=== PATIENT | female | born 1990 ===

== ENCOUNTER 2016-11-22 22:19 | Emergency (ER) | payer OTHER ==
[2016-11-22 22:21] VITALS: BMI 31.8
[2016-11-22 22:25] VITALS: TEMP 98.3
[2016-11-22] MEDS ORDERED: Sodium Chloride 0.9% 1,000 ML IV STA (22:50)
[2016-11-22 23:26] LABS: ADD MANUAL DIFF? NO
[2016-11-22 23:31] LABS: BASO # 0.02 K/mm3 (0.0-2.0); BASO % 0.2 % (0.0-3.0); EOS # 0.1 (0.0-0.7); GRAN # 5.96 (1.4-6.5); GRAN % 53.7 % (50.0-68.0); HEMATOCRIT 40.7 % (36.0-48.0); LYMPH # 4.2 (1.2-3.4); LYMPH % 37.8 % (22.0-35.0); MEAN CELL VOLUME 92.7 fL (80.0-105.0); MEAN CORPUSCULAR HEMOGLOBIN 31.2 pg (25.0-35.0); MEAN CORPUSCULAR HGB CONC 33.7 g/dl (31.0-37.0); MONO # 0.8 (0.1-0.6); MONO % 7.3 % (1.0-6.0); PLATELET COUNT 233 10^3/uL (120.0-450.0); RED CELL DISTRIBUTION WIDTH 12.9 % (11.5-14.5); WHITE BLOOD COUNT 11.1 10^3/ul (4.5-11.0)
[2016-11-22 23:43] LABS: ALB/GLOB RATIO 1.1 (1.1-1.8); ALKALINE PHOSPHATASE 123 U/L (38-133); ALT/SGPT 26 U/L (7-56); AST/SGOT 24 U/L (15-39); BILIRUBIN,TOTAL 0.4 mg/dL (0.2-1.3); BLOOD UREA NITROGEN 20 mg/dL (7-21); CARBON DIOXIDE 28 mmol/L (21-33); CHLORIDE 101 mmol/L (98-107); GFR AFRICAN-AMERICAN > 60; GLUCOSE,RANDOM 88 mg/dL (70-110); POTASSIUM 3.5 mmol/L (3.6-5.0); SODIUM 138 mmol/L (132-148); TOTAL PROTEIN 7.8 g/dL (5.8-8.3)
[2016-11-23 00:49] LABS: PH,URINE 6.5 (4.7-8.0); URINE BILIRUBIN NEGATIVE (NEGATIVE); URINE BLOOD TRACE-LYSED (NEGATIVE); URINE GLUCOSE (UA) NEGATIVE (NEGATIVE); URINE KETONE NEGATIVE (NEGATIVE); URINE LEUKOCYTE ESTERASE SMALL Leu/uL (NEGATIVE); URINE PROTEIN TRACE mg/dL (<30 mg/dL); URINE UROBILINOGEN 0.2 E.U./dL (<1 E.U./dL)
[2016-11-23 00:52] LABS: URINE APPEARANCE CLEAR (CLEAR); URINE COLOR YELLOW (YELLOW)
[2016-11-23 01:03] LABS: URINE BACTERIA MOD (NEG)
[2016-11-23 02:10] VITALS: BP 110/58; PULSE 85; RESP 16; O2SAT 97
--- NOTE | 2016-11-23 02:16 | ED PDOC ---
Arrival/HPI - General Chief Complaint: Headache Time Seen by Provider: 11/22/16 22:48 Historian: Patient - History of Present Illness Narrative History of Present Illness (Text): 11/23/16 00:00 A 26 year old female, whose past medical history includes migraines, presents to the emergency department complaining of typical migraine pain. Patient also notes mild left flank pain. Patient denies fever, neck stiffness, nausea, vomiting, abdominal pain or any other complaints at this time. Symptom Onset: Sudden Symptom Course: Unchanged Activities at Onset: Rest Context: Home Past Medical History - Provider Review Nursing Documentation Reviewed: Yes - Past History Past History: Non-Contributing - Infectious Disease Hx of Infectious Diseases: None - Tetanus Immunization Tetanus Immunization: Unknown - Cardiac Hx Cardiac Disorders: Yes Hx Hypertension: Yes (Pre eclampsia) - Pulmonary Hx Respiratory Disorders: Yes Hx Asthma: Yes - Neurological Hx Migraine: Yes - HEENT Hx HEENT Disorder: No - Renal Hx Renal Disorder: No - Endocrine/Metabolic Hx Hyperthyroidism: Yes - Hematological/Oncological Hx Blood Disorders: No - Integumentary Hx Dermatological Disorder: No - Musculoskeletal/Rheumatological Hx Musculoskeletal Disorders: No - Gastrointestinal Hx Gastrointestinal Disorders: No - Genitourinary/Gynecological Hx Genitourinary Disorders: No - Psychiatric Hx Psychophysiologic Disorder: No Hx Anxiety: No Hx Bipolar Disorder: No Hx Depression: No Hx Post Traumatic Stress Disorder: No Hx Schizophrenia: No Hx Substance Use: No - Past Surgical History Past Surgical History: No Previous - Surgical History Hx Cholecystectomy: Yes Hx Orthopedic Surgery: Yes (L ELBOW 12 yrs old) - Anesthesia Hx Anesthesia: Yes Hx Anesthesia Reactions: No Hx Malignant Hyperthermia: No - Suicidal Assessment Feels Threatened In Home Enviroment: No Family/Social History - Physician Review Nursing Documentation Reviewed: Yes Family/Social History: No Known Family HX Smoking Status: Never Smoked Hx Alcohol Use: No Hx Substance Use: No Hx Substance Use Treatment: No Allergies/Home Meds Allergies/Adverse Reactions: Allergies acetaminophen [From Percocet] Allergy (Verified 03/10/16 06:02) ANAPHYLAXIS Iodinated Contrast Media - Oral and [Iodinated Contrast Media - IV Dye] Allergy (Verified 03/10/16 06:46) RASH oxycodone HCl [From Percocet] Allergy (Verified 03/10/16 06:02) ANAPHYLAXIS Review of Systems - Physician Review All systems were reviewed & negative as marked: Yes - Review of Systems Constitutional: absent: Fevers Gastrointestinal: absent: Abdominal Pain, Nausea, Vomiting Musculoskeletal: Other (left flank pain). absent: Neck Pain Neurological: Headache Physical Exam Vital Signs Reviewed: Yes Vital Signs Temp Pulse Resp BP Pulse Ox 11/23/16 02:08 85 16 110/58 L 97 11/22/16 22:24 98.3 F 96 H 18 102/65 98 Temperature: Afebrile Blood Pressure: Normal Pulse: Regular Respiratory Rate: Normal Appearance: Positive for: Well-Appearing, Non-Toxic, Comfortable Pain Distress: None Mental Status: Positive for: Alert and Oriented X 3 - Systems Exam Head: Present: Atraumatic, Normocephalic Pupils: Present: PERRL Extroacular Muscles: Present: EOMI Conjunctiva: Present: Normal Mouth: Present: Moist Mucous Membranes Neck: Present: Normal Range of Motion Respiratory/Chest: Present: Clear to Auscultation, Good Air Exchange. No: Respiratory Distress, Accessory Muscle Use Cardiovascular: Present: Regular Rate and Rhythm, Normal S1, S2. No: Murmurs Abdomen: Present: Normal Bowel Sounds. No: Tenderness, Distention, Peritoneal Signs Back: Present: Normal Inspection. No: CVA Tenderness Upper Extremity: Present: Normal Inspection. No: Cyanosis, Edema Lower Extremity: Present: Normal Inspection. No: Edema Neurological: Present: GCS=15, CN II-XII Intact, Speech Normal Skin: Present: Warm, Dry, Normal Color. No: Rashes Psychiatric: Present: Alert, Oriented x 3, Normal Insight, Normal Concentration Medical Decision Making ED Course and Treatment: 11/23/16 00:00 Impression: A 26 year old female migraine and mild left flank pain. Differential Diagnosis included but are not limited to: Plan: -- Labs -- Urinalysis -- IV fluids, Toradol, Reglan -- Reassess and disposition Prior Visits: Notes and results from previous visits were reviewed. Patient last reported to the emergency department on 08/03/16 for evaluation of a headache. Patient was discharged. Progress Notes: 11/23/16 00:15 On re-evaluation, patient feels better and notes headache is gone. I have discussed the results and plan with the patient, who expresses understanding. Patient in agreement with plan to be discharged home. Patient is stable for discharge. Patient will be given antibiotics for urinary tract infection. Patient was instructed to follow up with physician or return if symptoms worsen or new concerning symptoms arise. - Lab Interpretations Lab Results: 11/22/16 23:15 11/22/16 23:15 Lab Results 11/23/16 00:35: Urine Color Yellow, Urine Appearance Clear, Urine pH 6.5, Ur Specific [place] 1.020, Urine Protein Trace H, Urine Glucose (UA) Negative, Urine Ketones Negative, Urine Blood Trace-lysed H, Urine Nitrate Negative, Urine Bilirubin Negative, Urine Urobilinogen 0.2, Ur Leukocyte Esterase Small H , Urine RBC 2 - 5, Urine WBC 5 - 10, Ur Epithelial Cells 3 - 4, Urine Bacteria Mod 11/22/16 23:15: Urine HCG, Qual Negative 11/22/16 23:15: WBC 11.1 H, RBC 4.39, Hgb 13.7, Hct 40.7, MCV 92.7, MCH 31.2, MCHC 33.7, RDW 12.9, Plt Count 233, MPV 11.0, Gran % 53.7, Lymph % (Auto) 37.8 H , [place] % (Auto) 7.3 H, Eos % (Auto) 1.0 L, Baso % (Auto) 0.2, Gran # 5.96, Lymph # 4.2 H, [place] # 0.8 H, Eos # 0.1, Baso # 0.02 11/22/16 23:15: Sodium 138, Potassium 3.5 L, Chloride 101, Carbon Dioxide 28, Anion Gap 13, BUN 20, Creatinine 0.7, Est GFR ( Amer) > 60, Est GFR (Non- Af Amer) > 60, Random Glucose 88, Calcium 9.0, Total Bilirubin 0.4, AST 24, ALT 26, Alkaline Phosphatase 123, Total Protein 7.8, Albumin 4.1, Globulin 3.7, Albumin/Globulin Ratio 1.1 I have reviewed the lab results: Yes - Medication Orders Current Medication Orders: Discontinued Medications Sodium Chloride (Sodium Chloride 0.9%) 1,000 mls @ 999 mls/hr IV .Q1H1M STA Stop: 11/22/16 23:50 Last Admin: 11/22/16 23:20 Dose: 999 mls/hr Ketorolac Tromethamine (Toradol) 30 mg IVP STAT STA Stop: 11/22/16 22:51 Last Admin: 11/22/16 23:20 Dose: 30 mg Re-Assess: CONCHA Pain Assessment Document 11/23/16 00:20 RD (Rec: 11/23/16 00:49 [facility] Pain Reassessment Is this a pain reassessment? Yes Sleep Is patient sleeping during reassessment? No Presence of Pain Presence of Pain No Metoclopramide HCl (Reglan) 10 mg IVP STAT STA Stop: 11/22/16 22:51 Last Admin: 11/22/16 23:20 Dose: 10 mg - Scribe Statement The provider has reviewed the documentation as recorded by the [place] Lan Provider Scribe Attestation: All medical record entries made by the Makedaibashwin were at my direction and personally dictated by me. I have reviewed the chart and agree that the record accurately reflects my personal performance of the history, physical exam, medical decision making, and the department course for this patient. I have also personally directed, reviewed, and agree with the discharge instructions and disposition. Disposition/Present on Arrival - Present on Arrival Any Indicators Present on Arrival: No History of DVT/PE: No History of Uncontrolled Diabetes: No Urinary Catheter: No History of Decub. Ulcer: No History Surgical Site Infection Following: None - Disposition Have Diagnosis and Disposition been Completed?: Yes Diagnosis: Migraine, UTI (urinary tract infection) Disposition: HOME/ ROUTINE Disposition Time: 00:15 Condition: IMPROVED Discharge Instructions (ExitCare): Urinary Tract Infection in Women (ED), Migraine Headache (ED) Additional Instructions: Thank you for letting us take care of you today. Your provider was Dr. Patel. You were treated for a migraine and a UTI. The emergency medical care you received today was directed at your acute symptoms. If you were prescribed any medication, please fill it and take as directed. It may take several days for your symptoms to resolve. Return to the Emergency Department if your symptoms worsen, do not improve, or if you have any other problems. Please contact your doctor or call one of the physicians/clinics you have been referred to that are listed on the Patient Visit Information form that is included in your discharge packet. Bring any paperwork you were given at discharge with you along with any medications you are taking to your follow up visit. Our treatment cannot replace ongoing medical care by a primary care provider (PCP) outside of the emergency department. Thank you for allowing the [facility] team to be part of your care today. You had a urine culture: It will take several days for the results, if any change in treatment is needed we will contact you. Follow up with your doctor in 3-4 days to be re-evaluated. Prescriptions: Ibuprofen [Motrin] 600 mg PO Q6 PRN #20 tab PRN Reason: Pain, Moderate (4-7) Nitrofurantoin Macrocrystals [Macrobid] 100 mg PO BID #10 cap Referrals: [facility] Roberth Req, [Non-Staff] - Follow up with primary
== END 2016-11-23 02:10 | disposition home or self-care (01) ==
LOC: ED 22:19
DX: G43.909 Migraine, unspecified, not intractable, without status migrainosus (principal); N39.0 Urinary tract infection, site not specified; I10 Essential (primary) hypertension
CPT/HCPCS: 80053; 81001; 84703; 85025; 87086; 96361; 96374; 96375; 99285; J1885; J2765; J7040

== ENCOUNTER 2016-11-24 14:51 | Observation (INO) | payer OTHER ==
[2016-11-24 14:51] VITALS: BMI 31.8
--- NOTE | 2016-11-24 15:12 | ED PDOC ---
Arrival/HPI <Helena Mistry - Last Filed: 11/24/16 19:26> - General Historian: Patient - History of Present Illness Time/Duration: Prior to Arrival Symptom Onset: Sudden Symptom Course: Unchanged <Solis Friedman - Last Filed: 11/24/16 19:40> - General Chief Complaint: Shortness Of Breath Time Seen by Provider: 11/24/16 14:53 - History of Present Illness Narrative History of Present Illness (Text): 26 F with past medical history includes vertigo, migraine (was just in ED for migraine 2 days ago) , hypothyroidism, asthma, and hypertension presents with shortness of breath and L sided facial numbness. Pt states that she was coming home from [place] when she felt short of breath and felt numbness in the L side of her face. She states that her sob and numbness has both now resolved. She denies any emerson, dizziness, f/c, coughing, cp, palpitations, abd pain, n/v/d. (Solis Friedman) Past Medical History - Provider Review Nursing Documentation Reviewed: Yes - Past History Past History: Non-Contributing - Infectious Disease Hx of Infectious Diseases: None - Tetanus Immunization Tetanus Immunization: Unknown - Cardiac Hx Cardiac Disorders: Yes Hx Hypertension: Yes (Pre eclampsia) - Pulmonary Hx Respiratory Disorders: Yes Hx Asthma: Yes - Neurological Hx Migraine: Yes - HEENT Hx HEENT Disorder: No - Renal Hx Renal Disorder: No - Endocrine/Metabolic Hx Hyperthyroidism: Yes - Hematological/Oncological Hx Blood Disorders: No - Integumentary Hx Dermatological Disorder: No - Musculoskeletal/Rheumatological Hx Musculoskeletal Disorders: No - Gastrointestinal Hx Gastrointestinal Disorders: No - Genitourinary/Gynecological Hx Genitourinary Disorders: No - Psychiatric Hx Psychophysiologic Disorder: No Hx Anxiety: No Hx Bipolar Disorder: No Hx Depression: No Hx Post Traumatic Stress Disorder: No Hx Schizophrenia: No Hx Substance Use: No - Past Surgical History Past Surgical History: No Previous - Surgical History Hx Cholecystectomy: Yes Hx Orthopedic Surgery: Yes (L ELBOW 12 yrs old) - Anesthesia Hx Anesthesia: Yes Hx Anesthesia Reactions: No Hx Malignant Hyperthermia: No - Suicidal Assessment Feels Threatened In Home Enviroment: No <Solis Friedman - Last Filed: 11/24/16 19:40> Family/Social History - Physician Review Nursing Documentation Reviewed: Yes Family/Social History: CVA/TIA (mother) Smoking Status: Never Smoked Hx Alcohol Use: No Hx Substance Use: No Hx Substance Use Treatment: No <Megan Friedmana - Last Filed: 11/24/16 19:40> Allergies/Home Meds <Helena Mistry - Last Filed: 11/24/16 19:26> <JamesMegan jorgensena - Last Filed: 11/24/16 19:40> Allergies/Adverse Reactions: Allergies acetaminophen [From Percocet] Allergy (Verified 11/24/16 14:54) ANAPHYLAXIS Iodinated Contrast Media - Oral and [Iodinated Contrast Media - IV Dye] Allergy (Verified 11/24/16 14:54) RASH oxycodone HCl [From Percocet] Allergy (Verified 11/24/16 14:54) ANAPHYLAXIS Review of Systems - Physician Review All systems were reviewed & negative as marked: Yes - Review of Systems Eyes: absent: Vision Changes Respiratory: SOB. absent: Cough Cardiovascular: absent: Chest Pain, Palpitations Gastrointestinal: absent: Abdominal Pain Neurological: Other (L sided facial numbness ) <Solis Friedman - Last Filed: 11/24/16 19:40> Physical Exam Vital Signs Reviewed: Yes Temperature: Afebrile Blood Pressure: Normal Pulse: Regular Respiratory Rate: Normal Appearance: Positive for: Well-Appearing, Non-Toxic, Comfortable Pain Distress: None Mental Status: Positive for: Alert and Oriented X 3 - Systems Exam Head: Present: Atraumatic, Normocephalic Pupils: Present: PERRL Extroacular Muscles: Present: EOMI Conjunctiva: Present: Normal Mouth: Present: Moist Mucous Membranes Neck: Present: Normal Range of Motion Respiratory/Chest: Present: Clear to Auscultation, Good Air Exchange, Wheezes ( Minor R sided wheezing ). No: Respiratory Distress, Accessory Muscle Use Cardiovascular: Present: Regular Rate and Rhythm, Normal S1, S2. No: Murmurs Abdomen: Present: Normal Bowel Sounds. No: Tenderness, Distention, Peritoneal Signs Upper Extremity: Present: Normal Inspection. No: Cyanosis, Edema Lower Extremity: Present: Normal Inspection. No: Edema Neurological: Present: GCS=15, CN II-XII Intact, Speech Normal Skin: Present: Warm, Dry, Normal Color. No: Rashes Psychiatric: Present: Alert, Oriented x 3, Normal Insight, Normal Concentration <Solis Friedman - Last Filed: 11/24/16 19:40> Vital Signs Pulse Resp BP Pulse Ox 11/24/16 16:57 83 16 112/55 L 98 11/24/16 15:26 16 100 Medical Decision Making <Helena Mistry - Last Filed: 11/24/16 19:26> <Solis Friedman - Last Filed: 11/24/16 19:40> ED Course and Treatment: Patient Seen With Resident: In agreement with resident note which contains more details about the patient. Patient was seen and evaluated with resident. Came up with plan and treatment together. Patient reports family hx of CVA, both mother and father have history of strokes. She reports half sister at age of 30 from sudden cardiac episodes. She denies smoking. NO prior history of dvt or pe. No calf pain or swelling. Ddimer unremarkable. Ultrasound negative for DVT. Patient reports left facial numbness with "difficulty speaking" for "a few minutes" which resolved spontaneously. Currently no facial droop or focal motor or sensory deficits. Visual acuity and w[place] currently intact. No meningeal signs or trauma or fever. Reports change in character of typical headaches over past several weeks. CT head unremarkable. Will admit to observation for serial neuro exams. Case d/w Dr. Almanza. Re-exam, no hypoxia, no focal deficits. Not tpa candidate as resolution of symptoms. ASA given. 11/24/16 19:26 (Helena Mistry) Impression: 26 F with past medical history includes vertigo, migraine, hypothyroidism, asthma, and hypertension presents with SOB and L sided facial numbness. Differential Diagnosis included but are not limited to: Asthma / r/o TIA Plan: - CBC, CMP - Duoneb stat - Reassess and disposition Progress Notes: EKG Ordered reviewed and independently interpreted the EKG Rate: BPM Rythm: sinus rhythm with sinus arrhythmia with occasional PVC Interpretation: No ST segment elevation or depression, no T wave inversions, normal intervals. Comparison: 03/09/16 11/24/16 15:[address] w/o contrast Will order D-Dimer and Lower ext venous doppler to r/o any PE and DVT 11/24/16 16:32 Lower ext US negative for any DVTs b/l. 11/24/16 16:34 D-Dimer negative 0.32 11/24/16 16:[address] - Negative for any acute intracranial abnormality. 11/24/16 17:28 CXR shows no active disease 11/24/16 17:53 Pt with extensive family history of mother with CVA 1 year ago with L sided residual weakness, and sister with sudden at age of 30 with unknown cause. 11/24/16 18:[address] Almanza which will admit to hospitalist service for further neurology evaluation for expressive aphasia which has been resolved. (IdaliaSolis) - Lab Interpretations Lab Results: 11/24/16 15:05 11/24/16 15:05 Lab Results 11/24/16 15:05: Lactate Dehydrogenase 389, Total Creatine Kinase 112, Troponin I < 0.01 11/24/16 15:05: D-Dimer, Quantitative 0.32 11/24/16 15:05: Sodium 142, Potassium 3.4 L, Chloride 104, Carbon Dioxide 30, Anion Gap 11, BUN 11, Creatinine 0.6, Est GFR ( Amer) > 60, Est GFR (Non- Af Amer) > 60, Random Glucose 92, Calcium 9.3, Total Bilirubin 0.4, AST 21, ALT 27, Alkaline Phosphatase 92, Total Protein 7.9, Albumin 4.1, Globulin 3.8, Albumin/Globulin Ratio 1.1 11/24/16 15:05: WBC 8.6 D, RBC 4.37, Hgb 13.4, Hct 40.4, MCV 92.4, MCH 30.7, MCHC 33.2, RDW 12.8, Plt Count 233, MPV 10.9, Gran % 57.2, Lymph % (Auto) 35.0, [place] % (Auto) 6.3 H, Eos % (Auto) 1.3 L, Baso % (Auto) 0.2, Gran # 4.91, Lymph # 3.0, [place] # 0.5, Eos # 0.1, Baso # 0.02 - RAD Interpretation Radiology Orders: 11/24/16 15:25 HEAD W/O CONTRAST [CT] Stat 11/24/16 15:26 DUPLEX LOWER EXTRM VEIN BILAT [US] Stat 11/24/16 16:49 CHEST PORTABLE [RAD] Stat - Medication Orders Current Medication Orders: Discontinued Medications Albuterol/Ipratropium (Duoneb 3 Mg/0.5 Mg (3 Ml) Ud) 3 ml IH Q15M ITTO Stop: 11/24/16 15:46 Last Admin: 11/24/16 15:50 Dose: 3 ml Aspirin (Aspirin Chewable) 81 mg PO STAT STA Stop: 11/24/16 17:45 Last Admin: 11/24/16 18:10 Dose: 81 mg Potassium Chloride (K-Dur 20 Meq Er Tab) 20 meq PO STAT STA Stop: 11/24/16 16:08 Last Admin: 11/24/16 16:50 Dose: 20 meq NIHSS Scale ([place]) Time Performed: 15:30 - How Severe is the [place] Baseline Level of Consciousness: 0=Alert LOC to Questions: 0=Both comments correct LOC to commands: 0=Obeys both correctly Best Gaze: 0=Normal Visual: 0=No visual loss Facial: 0=Normal Motor Arm - Left: 0=No drift Motor Arm - Right: 0=No drift Motor Leg - Left: 0=No drift Motor Leg - Right: 0=No drift Limb Ataxia: 0=Absent Sensory: 0=Normal Best Language: 0=No aphasia Dysarthia: 0=Normal articulation Extinction & Inattention (Neglect): 0=Normal, no object Score: 0 Risk Level: No Stroke Risk <Helena Mistry - Last Filed: 11/24/16 19:26> rTPA Inclusion/Exclusion - Refusal of Treatment Patient Refused Treatment: No - Inclusion Criteria for Altepase Patient is 18 years or Older: Yes The Clinical Diagnosis of Ischemic Stroke That is Causing a Potentially Disabling Neurological Deficit: No Time of Onset is Well Established to be Less Than 270 Minute Before Treatment Would Begin: No Risk/Benefit Discussed With Patient/Family Member Present: Yes - Warning to TPA With Conditions Condition: Rapid Improvement <Helena Mistry - Last Filed: 11/24/16 19:26> - Refusal of Treatment Patient Refused Treatment: Yes <Solis Friedman - Last Filed: 11/24/16 19:40> - PA / CHAIRMAN CEO / Resident Statement BEN has reviewed & agrees with the documentation as recorded. BEN has examined the patient and agrees with the treatment plan. <Helena Mistry - Last Filed: 11/24/16 19:26> - PA / CHAIRMAN CEO / Resident Statement BEN has reviewed & agrees with the documentation as recorded. BEN has examined the patient and agrees with the treatment plan. <Solis Friedman - Last Filed: 11/24/16 19:40> Disposition/Present on Arrival <Helena Mistry - Last Filed: 11/24/16 19:26> - Present on Arrival Any Indicators Present on Arrival: No History of DVT/PE: No History of Uncontrolled Diabetes: No Urinary Catheter: No History of Decub. Ulcer: No History Surgical Site Infection Following: None - Disposition Have Diagnosis and Disposition been Completed?: Yes Disposition Time: 17:25 Patient Plan: Admission, Observation <Solis Friedman - Last Filed: 11/24/16 19:40> - Disposition Diagnosis: Facial numbness Disposition: HOSPITALIZED Condition: IMPROVED
[2016-11-24 15:17] LABS: ADD MANUAL DIFF? NO
[2016-11-24] MEDS: Albuterol-Ipratrop 3 mg / 0.5 (3 ml) UD IH SCH ×3 (15:24→15:50)
[2016-11-24 15:31] LABS: BASO # 0.02 K/mm3 (0.0-2.0); BASO % 0.2 % (0.0-3.0); EOS # 0.1 (0.0-0.7); EOS % 1.3 % (1.5-5.0); GRAN # 4.91 (1.4-6.5); GRAN % 57.2 % (50.0-68.0); HEMATOCRIT 40.4 % (36.0-48.0); MEAN CELL VOLUME 92.4 fL (80.0-105.0); MEAN CORPUSCULAR HEMOGLOBIN 30.7 pg (25.0-35.0); MEAN CORPUSCULAR HGB CONC 33.2 g/dl (31.0-37.0); MEAN PLATELET VOLUME 10.9 fl (7.0-11.0); MONO # 0.5 (0.1-0.6); MONO % 6.3 % (1.0-6.0); PLATELET COUNT 233 10^3/uL (120.0-450.0); RED CELL DISTRIBUTION WIDTH 12.8 % (11.5-14.5); WHITE BLOOD COUNT 8.6 10^3/ul (4.5-11.0)
[2016-11-24 15:44] LABS: ALB/GLOB RATIO 1.1 (1.1-1.8); ALKALINE PHOSPHATASE 92 U/L (38-133); ALT/SGPT 27 U/L (7-56); AST/SGOT 21 U/L (15-39); BILIRUBIN,TOTAL 0.4 mg/dL (0.2-1.3); BLOOD UREA NITROGEN 11 mg/dL (7-21); CALCIUM 9.3 mg/dL (8.4-10.5); CARBON DIOXIDE 30 mmol/L (21-33); CHLORIDE 104 mmol/L (98-107); GFR AFRICAN-AMERICAN > 60; GLUCOSE,RANDOM 92 mg/dL (70-110); POTASSIUM 3.4 mmol/L (3.6-5.0); SODIUM 142 mmol/L (132-148); TOTAL PROTEIN 7.9 g/dL (5.8-8.3)
[2016-11-24] MEDS ORDERED: Potassium Chloride 20 mEq ER Tab PO STA (16:07)
[2016-11-24 16:44] LABS: TROPONIN I < 0.01 ng/mL
--- NOTE | 2016-11-24 16:46 | CT ---
PROCEDURE: CT HEAD WITHOUT CONTRAST. HISTORY: L sided facial numbness COMPARISON: 06/01/2013 TECHNIQUE: Axial computed tomography images were obtained through the head/brain without intravenous contrast. Radiation dose: Total exam DLP = 774.23 mGy-cm. This CT exam was performed using one or more of the following dose reduction techniques: Automated exposure control, adjustment of the mA and/or kV according to patient size, and/or use of iterative reconstruction technique. FINDINGS: HEMORRHAGE: No intracranial hemorrhage. BRAIN: No mass effect or edema. No atrophy or chronic microvascular ischemic changes. VENTRICLES: Unremarkable. No hydrocephalus. CALVARIUM: Unremarkable. PARANASAL SINUSES: Unremarkable as visualized. No significant inflammatory changes. MASTOID AIR CELLS: Unremarkable as visualized. No inflammatory changes. OTHER FINDINGS: None. IMPRESSION: Normal CT of the Head. No intracranial mass, hemorrhage or evidence of acute infarct.
--- NOTE | 2016-11-24 17:24 | RAD ---
HISTORY: sob COMPARISON: 01/21/2016 FINDINGS: LUNGS: No active pulmonary disease. PLEURA: No significant pleural effusion identified, no pneumothorax apparent. CARDIOVASCULAR: Normal. OSSEOUS STRUCTURES: No significant abnormalities. VISUALIZED UPPER ABDOMEN: Normal. OTHER FINDINGS: None. IMPRESSION: No active disease.
[2016-11-24 19:57] VITALS: RESP 18; TEMP 98.2
[2016-11-24] MEDS ORDERED: Oxycodone/Acetaminophen 2.5/325 mg Tab PO PRN (20:01)
[2016-11-24] MEDS ORDERED: Albuterol-Ipratrop 3 mg / 0.5 (3 ml) UD IH PRN (20:02)
--- NOTE | 2016-11-24 20:22 | CP.PCM.HP ---
History of Present Illness - History of Present Illness History of Present Illness: 26 year old female with past medical history of vertigo, migraines, hypothyroidism, asthma, hypertension presents [place] [facility] with headache, shortness of breath and left side facial numbness. Patient reports her headache started 2 days ago was evaluated at [facility] and was discharged home with Motrin and Macrobid. Patient reports the medications help but headache still happens intermittently. This morning patient started having left side facial numbness after coming home from [facility] and became shortness of breath after walking a flight of stairs. Patient became worried because her mother had similar symptoms and eventually developed stroke 1 year ago. Patient's shortness of breath and facial numbness resolved spontaneously in the ED, but still complains of mild headache. Patient states she was diagnosed with vertigo in 2013 and was on vertigo medication for a short period of time. Patient sees a headache specialist which she does not remember the name and was scheduled to have a echocardiogram done on 12/02/16. Patient denies having fever, chills, weakness, chest pain, palpitations, abdominal pain, nausea, vomiting, diarrhea, or urinary symptoms. PMD: Dr. Mclean PMHx: vertigo, migraines, hypothyroidism, asthma, hypertension PSHx: Cholecystectomy, left elbow surgery Allergy: acetaminophen, iodinated contrast, oxycodone Family Hx: mother-CVA Home meds: macrobid, motrin Present on Admission - Present on Admission Any Indicators Present on Admission: No History of DVT/PE: No History of Uncontrolled Diabetes: No Review of Systems - Constitutional Constitutional: As Per HPI, Headache. absent: Chills, Fever, Frequent Falls, Weakness - EENT Eyes: As Per HPI, Blurred Vision, Photophobia. absent: Irritation Ears: As Per HPI Nose/Mouth/Throat: As Per HPI. absent: Change in Voice, Dysphagia - Cardiovascular Cardiovascular: As Per HPI. absent: Chest Pain, Chest Pain with Activity, Edema , Lightheadedness, Syncope - Respiratory Respiratory: As Per HPI, Dyspnea. absent: Cough, Wheezing, Snoring - Gastrointestinal Gastrointestinal: As Per HPI. absent: Abdominal Pain, Constipation, Diarrhea, Nausea, Vomiting - Genitourinary Genitourinary: As Per HPI. absent: Urinary Incontinence, Urinary Frequency, Urinary Hesitance - Musculoskeletal Musculoskeletal: As Per HPI. absent: Back Pain, Deformity, Limited Range of Motion - Integumentary Integumentary: As Per HPI. absent: Alopecia, Lesions - Neurological Neurological: As Per HPI, Numbness (left facial numbness), Headaches. absent: Syncope - Psychiatric Psychiatric: As Per HPI. absent: Auditory Hallucinations, Visual Hallucinations - Endocrine Endocrine: As Per HPI - Hematologic/Lymphatic Hematologic: As Per HPI Past Patient History - Infectious Disease Hx of Infectious Diseases: None - Tetanus Immunizations Tetanus Immunization: Unknown - Past Social History Smoking Status: Never Smoked - CARDIAC Hx Cardiac Disorders: Yes Hx Hypertension: Yes (Pre eclampsia) - PULMONARY Hx Respiratory Disorders: Yes Hx Asthma: Yes - NEUROLOGICAL Hx Migraine: Yes - HEENT Hx HEENT Problems: No - RENAL Hx Chronic Kidney Disease: No - ENDOCRINE/METABOLIC Hx Hyperthyroidism: Yes - HEMATOLOGICAL/ONCOLOGICAL Hx Blood Disorders: No - INTEGUMENTARY Hx Dermatological Problems: No - MUSCULOSKELETAL/RHEUMATOLOGICAL Hx Musculoskeletal Disorders: No - GASTROINTESTINAL Hx Gastrointestinal Disorders: No - GENITOURINARY/GYNECOLOGICAL Hx Genitourinary Disorders: No - PSYCHIATRIC Hx Psychophysiologic Disorder: No Hx Anxiety: No Hx Bipolar Disorder: No Hx Depression: No Hx Post Traumatic Stress Disorder: No Hx Schizophrenia: No Hx Substance Use: No - SURGICAL HISTORY Hx Cholecystectomy: Yes Hx Orthopedic Surgery: Yes (L ELBOW 12 yrs old) - ANESTHESIA Hx Anesthesia: Yes Hx Anesthesia Reactions: No Hx Malignant Hyperthermia: No Meds Allergies/Adverse Reactions: Allergies Allergy/AdvReac Type Severity Reaction Status Date / Time acetaminophen [From Percocet] Allergy ANAPHYLAXIS Verified 11/24/16 14:54 Iodinated Contrast Media - Allergy RASH Verified 11/24/16 14:54 Oral and [Iodinated Contrast Media - IV Dye] oxycodone HCl [From Percocet] Allergy ANAPHYLAXIS Verified 11/24/16 14:54 Results - Vital Signs Recent Vital Signs: Last Vital Signs Temp 98.2 F 11/24/16 19:57 Pulse 84 11/24/16 19:57 Resp 18 11/24/16 19:57 BP 118/68 11/24/16 19:57 Pulse Ox 99 11/24/16 19:57 - Labs Result Diagrams: 11/24/16 15:05 11/24/16 15:05 Assessment & Plan - Assessment and Plan (Free Text) Assessment: 26 year old female with past medical history of vertigo, migraines, hypothyroidism, asthma presents with shortness of breath and left facial numbness Plan: Variant migraine headache -Motrin for mild pain -Percocet for severe pain -CT head negative for intracranial mass, hemorrhage or acute infarct -Neurology consult, Dr. Jerald Woodruff help appreciated Shortness of breath, resolved -D Dimer negative -LE doppler Negative for DVT Left facial numbness, resolved -CT head negative for intracranial mass, hemorrhage or acute infarct -Follow up lipid panel Hypokalemia -Potassium 3.4 on admission -Follow up AM lab -Supplement as needed UTI -Diagnosed during last ED visit 2 days ago -Continue 5 day course of macrobid po Asthma -Duoneb IH Q3 prn Prophylactic measures -protonix of GI ppx -SCD for DVT ppx -Benadryl for allergy symptoms
[2016-11-25] MEDS ORDERED: Pantoprazole 40 mg EC Tab PO SCH (06:30)
[2016-11-25 07:30] LABS: ADD MANUAL DIFF? NO
[2016-11-25 07:33] LABS: BASO # 0.02 K/mm3 (0.0-2.0); BASO % 0.3 % (0.0-3.0); EOS # 0.1 (0.0-0.7); GRAN # 4.69 (1.4-6.5); GRAN % 59.1 % (50.0-68.0); HEMATOCRIT 39.1 % (36.0-48.0); LYMPH # 2.7 (1.2-3.4); LYMPH % 33.8 % (22.0-35.0); MEAN CELL VOLUME 93.3 fL (80.0-105.0); MEAN CORPUSCULAR HEMOGLOBIN 30.3 pg (25.0-35.0); MEAN CORPUSCULAR HGB CONC 32.5 g/dl (31.0-37.0); MEAN PLATELET VOLUME 10.9 fl (7.0-11.0); MONO # 0.5 (0.1-0.6); MONO % 5.8 % (1.0-6.0); PLATELET COUNT 231 10^3/uL (120.0-450.0); RED CELL DISTRIBUTION WIDTH 13.1 % (11.5-14.5); WHITE BLOOD COUNT 7.9 10^3/ul (4.5-11.0)
[2016-11-25 07:47] LABS: BLOOD UREA NITROGEN 11 mg/dL (7-21); CALCIUM 8.9 mg/dL (8.4-10.5); CARBON DIOXIDE 28 mmol/L (21-33); CHLORIDE 104 mmol/L (95-110); CHOLESTEROL 144 mg/dL (130-200); GFR AFRICAN-AMERICAN > 60; GLUCOSE,RANDOM 87 mg/dL (70-110); POTASSIUM 3.8 mmol/L (3.6-5.0); SODIUM 142 mmol/L (132-148)
[2016-11-25 08:04] VITALS: BP 106/71; O2SAT 97
--- NOTE | 2016-11-25 08:33 | US ---
HISTORY: Leg pain and swelling. Evaluate for DVT PHYSICIAN(S): Irineo Germain MD. TECHNIQUE: Duplex sonography and color-flow Doppler with graded compression were used to evaluate the deep venous systems of both lower extremities. FINDINGS: The visualized deep venous systems of both lower extremities are sonographically normal and compressible. Normal wave forms and augmentation are seen. There is no sonographic evidence for deep venous thrombosis in the visualized segments of both lower extremities. IMPRESSION: No sonographic evidence for deep venous thrombosis in the visualized segments of both lower extremities.
[2016-11-25 08:49] LABS: TROPONIN I < 0.01 ng/mL
[2016-11-25 11:40] VITALS: PULSE 78
--- NOTE | 2016-11-25 13:55 | CP.PCM.DIS ---
<Alonzo Sherwood - Last Filed: 11/25/16 14:05> Provider - Provider Date of Admission: 11/24/16 18:10 Attending physician: Krystal Dumont MD Time Spent in preparation of Discharge (in minutes): 15 Hospital Course - Lab Results Lab Results: Most Recent Lab Values WBC 7.9 10^3/ul (4.5-11.0) 11/25/16 07:00 RBC 4.19 10^6/uL (3.5-6.1) 11/25/16 07:00 Hgb 12.7 gm/dL (12.0-16.0) 11/25/16 07:00 Hct 39.1 % (36.0-48.0) 11/25/16 07:00 MCV 93.3 fL (80.0-105.0) 11/25/16 07:00 MCH 30.3 pg (25.0-35.0) 11/25/16 07:00 MCHC 32.5 g/dl (31.0-37.0) 11/25/16 07:00 RDW 13.1 % (11.5-14.5) 11/25/16 07:00 Plt Count 231 10^3/uL (120.0-450.0) 11/25/16 07:00 MPV 10.9 fl (7.0-11.0) 11/25/16 07:00 Gran % 59.1 % (50.0-68.0) 11/25/16 07:00 Lymph % (Auto) 33.8 % (22.0-35.0) 11/25/16 07:00 Cross % (Auto) 5.8 % (1.0-6.0) 11/25/16 07:00 Eos % (Auto) 1.0 % (1.5-5.0) L 11/25/16 07:00 Baso % (Auto) 0.3 % (0.0-3.0) 11/25/16 07:00 Gran # 4.69 (1.4-6.5) 11/25/16 07:00 Lymph # 2.7 (1.2-3.4) 11/25/16 07:00 Cross # 0.5 (0.1-0.6) 11/25/16 07:00 Eos # 0.1 (0.0-0.7) 11/25/16 07:00 Baso # 0.02 K/mm3 (0.0-2.0) 11/25/16 07:00 D-Dimer, Quantitative 0.32 mg/L FEU (0-0.50) 11/24/16 15:05 Sodium 142 mmol/L (132-148) 11/25/16 07:00 Potassium 3.8 mmol/L (3.6-5.0) 11/25/16 07:00 Chloride 104 mmol/L (95-110) 11/25/16 07:00 Carbon Dioxide 28 mmol/L (21-33) 11/25/16 07:00 Anion Gap 14 (10-20) 11/25/16 07:00 BUN 11 mg/dL (7-21) 11/25/16 07:00 Creatinine 0.7 mg/dL (0.5-1.4) 11/25/16 07:00 Est GFR ( Amer) > 60 11/25/16 07:00 Est GFR (Non-Af Amer) > 60 11/25/16 07:00 POC Glucose (mg/dL) 115 mg/dL (65-110) H 11/24/16 15:06 Random Glucose 87 mg/dL (70-110) 11/25/16 07:00 Calcium 8.9 mg/dL (8.4-10.5) 11/25/16 07:00 Total Bilirubin 0.4 mg/dL (0.2-1.3) 11/24/16 15:05 AST 21 U/L (15-39) 11/24/16 15:05 ALT 27 U/L (7-56) 11/24/16 15:05 Alkaline Phosphatase 92 U/L (38-133) 11/24/16 15:05 Lactate Dehydrogenase 378 U/L (333-699) 11/25/16 13:00 Total Creatine Kinase 88 U/L (35-230) 11/25/16 13:00 Troponin I < 0.01 ng/mL 11/25/16 07:00 Total Protein 7.9 g/dL (5.8-8.3) 11/24/16 15:05 Albumin 4.1 g/dL (3.0-4.8) 11/24/16 15:05 Globulin 3.8 gm/dL 11/24/16 15:05 Albumin/Globulin Ratio 1.1 (1.1-1.8) 11/24/16 15:05 Triglycerides 60 mg/dL (35-160) 11/25/16 07:00 Cholesterol 144 mg/dL (130-200) 11/25/16 07:00 LDL Cholesterol Direct 92 mg/dL (0-129) 11/25/16 07:00 HDL Cholesterol 39 mg/dL (29-60) 11/25/16 07:00 - Hospital Course Hospital Course: 11/24/16: 26 F with PMHx of asthma, migraines, presented to [facility] with headache, shortness of breath and left side facial numbness. Patient reports her headache started 2 days ago. She was evaluated at [facility] and was discharged home with Motrin and Macrobid. Patient reports the medications help but headache still happens intermittently. On 11/24, patient started having left side facial numbness after coming home from [facility] and became shortness of breath after walking a flight of stairs. Patient became worried because her mother had similar symptoms and eventually developed stroke 1 year ago. Patient' s shortness of breath and facial numbness resolved spontaneously in the ED, but still complains of mild headache. Patient states she was diagnosed with vertigo in 2013 and was on vertigo medication for a short period of time. Patient sees a headache specialist which she does not remember the name and was scheduled to have a echocardiogram done on 12/02/16. Patient denies having fever, chills, weakness, chest pain, palpitations, abdominal pain, nausea, vomiting, diarrhea, or urinary symptoms. 11/25/16: Patient was seen and examined. Patient reports she no longer has SOB. She states the breathing treatments she was given helped tremendously. Patient denies cough. Patient reports moderate headache that is worse at the frontal and occipital regions of head. At time of examination patient denied any left facial paresthesias. Patient's CN II-XII are intact. Patient decided to sign out AMA because she refused to wait for neurologist to see her. Patient was educated about risks of leaving AMA without a neurologist examining her. Patient understood risks but still refused to wait, stating she had things to do at home and children to take care of. Patient was advised to follow up with primary care physician. Patient advised to return to emergency room immediately if her symptoms do not improve or worsen. Above is a brief hospital course, for more details please refer to the medical records. Discharge Exam - Head Exam Head Exam: NORMOCEPHALIC - Eye Exam Eye Exam: Normal appearance - ENT Exam ENT Exam: Mucous Membranes Moist - Respiratory Exam Respiratory Exam: NORMAL BREATHING PATTERN - Cardiovascular Exam Cardiovascular Exam: +S1, +S2 - GI/Abdominal Exam GI & Abdominal Exam: Soft. absent: Tenderness - Neurological Exam Neurological exam: Alert, Oriented x3 - Psychiatric Exam Psychiatric exam: Normal Mood - Skin Skin Exam: Dry, Intact, Warm Discharge Plan - Follow Up Plan Condition: IMPROVED Disposition: AGAINST MEDICAL ADVICE <Krystal Dumont - Last Filed: 11/25/16 15:01> Provider - Provider Date of Admission: 11/24/16 18:10 Attending physician: Krystal Dumont MD [facility] Course - Lab Results Lab Results: Most Recent Lab Values WBC 7.9 10^3/ul (4.5-11.0) 11/25/16 07:00 RBC 4.19 10^6/uL (3.5-6.1) 11/25/16 07:00 Hgb 12.7 gm/dL (12.0-16.0) 11/25/16 07:00 Hct 39.1 % (36.0-48.0) 11/25/16 07:00 MCV 93.3 fL (80.0-105.0) 11/25/16 07:00 MCH 30.3 pg (25.0-35.0) 11/25/16 07:00 MCHC 32.5 g/dl (31.0-37.0) 11/25/16 07:00 RDW 13.1 % (11.5-14.5) 11/25/16 07:00 Plt Count 231 10^3/uL (120.0-450.0) 11/25/16 07:00 MPV 10.9 fl (7.0-11.0) 11/25/16 07:00 Gran % 59.1 % (50.0-68.0) 11/25/16 07:00 Lymph % (Auto) 33.8 % (22.0-35.0) 11/25/16 07:00 Cross % (Auto) 5.8 % (1.0-6.0) 11/25/16 07:00 Eos % (Auto) 1.0 % (1.5-5.0) L 11/25/16 07:00 Baso % (Auto) 0.3 % (0.0-3.0) 11/25/16 07:00 Gran # 4.69 (1.4-6.5) 11/25/16 07:00 Lymph # 2.7 (1.2-3.4) 11/25/16 07:00 Cross # 0.5 (0.1-0.6) 11/25/16 07:00 Eos # 0.1 (0.0-0.7) 11/25/16 07:00 Baso # 0.02 K/mm3 (0.0-2.0) 11/25/16 07:00 D-Dimer, Quantitative 0.32 mg/L FEU (0-0.50) 11/24/16 15:05 Sodium 142 mmol/L (132-148) 11/25/16 07:00 Potassium 3.8 mmol/L (3.6-5.0) 11/25/16 07:00 Chloride 104 mmol/L (95-110) 11/25/16 07:00 Carbon Dioxide 28 mmol/L (21-33) 11/25/16 07:00 Anion Gap 14 (10-20) 11/25/16 07:00 BUN 11 mg/dL (7-21) 11/25/16 07:00 Creatinine 0.7 mg/dL (0.5-1.4) 11/25/16 07:00 Est GFR ( Amer) > 60 11/25/16 07:00 Est GFR (Non-Af Amer) > 60 11/25/16 07:00 POC Glucose (mg/dL) 115 mg/dL (65-110) H 11/24/16 15:06 Random Glucose 87 mg/dL (70-110) 11/25/16 07:00 Calcium 8.9 mg/dL (8.4-10.5) 11/25/16 07:00 Total Bilirubin 0.4 mg/dL (0.2-1.3) 11/24/16 15:05 AST 21 U/L (15-39) 11/24/16 15:05 ALT 27 U/L (7-56) 11/24/16 15:05 Alkaline Phosphatase 92 U/L (38-133) 11/24/16 15:05 Lactate Dehydrogenase 378 U/L (333-699) 11/25/16 13:00 Total Creatine Kinase 88 U/L (35-230) 11/25/16 13:00 Troponin I < 0.01 ng/mL 11/25/16 13:00 Total Protein 7.9 g/dL (5.8-8.3) 11/24/16 15:05 Albumin 4.1 g/dL (3.0-4.8) 11/24/16 15:05 Globulin 3.8 gm/dL 11/24/16 15:05 Albumin/Globulin Ratio 1.1 (1.1-1.8) 11/24/16 15:05 Triglycerides 60 mg/dL (35-160) 11/25/16 07:00 Cholesterol 144 mg/dL (130-200) 11/25/16 07:00 LDL Cholesterol Direct 92 mg/dL (0-129) 11/25/16 07:00 HDL Cholesterol 39 mg/dL (29-60) 11/25/16 07:00 Attending/Attestation - Attestation I have personally seen and examined this patient.: Yes I have fully participated in the care of the patient.: Yes I have reviewed all pertinent clinical information, including history, physical exam and plan: Yes Notes (Text): 11/25/16 14:56 26 year old female with past medical history of asthma and migraines who presented with complaint of left sided facial numbness and headache x [address] head was negative for acute findings. She was admitted overnight for observations. Neurology consultation was requested. She also initially complained of shortness of breath. D-dimer and cxr were negative. LE dopplers were also negative. Her lungs were clear on examination. Patient was seen and examined this morning. She reports her headache was better and her left facial numbness and dyspnea had resolved. She refused to wait for the neurologist stating she has to go home to her kids and to go to work. She signed out against medical advice. Krystal Dumont MD Hospitalist.
[2016-11-25 13:57] LABS: TROPONIN I < 0.01 ng/mL
--- NOTE | 2016-11-25 16:46 | CARD ---
APPROVED REPORT EKG Measurement Heart [id number] <Conclusion> Sinus rhythm with sinus arrhythmia with occasional premature ventricular complexes Otherwise normal ECG
== END 2016-11-25 14:15 | disposition left against medical advice (07) ==
LOC: ED 14:51 → ERH 18:10 → 3RNO 20:36
PROVIDERS: ADMIT Internal Medicine; ATTEND Internal Medicine
DX: G43.909 Migraine, unspecified, not intractable, without status migrainosus (principal); E03.9 Hypothyroidism, unspecified; J45.909 Unspecified asthma, uncomplicated; I10 Essential (primary) hypertension; R20.0 Anesthesia of skin; Z82.3 Family history of stroke; Z90.49 Acquired absence of other specified parts of digestive tract; R06.02 Shortness of breath; Z88.5 Allergy status to narcotic agent; Z87.892 Personal history of anaphylaxis; Z88.6 Allergy status to analgesic agent; Z91.041 Radiographic dye allergy status; R40.2411 Glasgow coma scale score 13-15, in the field [EMT or ambulance]; E87.6 Hypokalemia; N39.0 Urinary tract infection, site not specified
CPT/HCPCS: 36415; 70450; 71010; 80048; 80053; 80061; 82550; 82948; 83615; 84484; 85025; 85378; 93005; 93970; 94640; 99285; G0378

== ENCOUNTER 2017-05-30 20:54 | Emergency (ER) | payer SELFPAY ==
[2017-05-30 20:54] VITALS: BMI 31.8
[2017-05-30 21:25] VITALS: RESP 18; TEMP 98.2
--- NOTE | 2017-05-30 21:45 | ED PDOC ---
Arrival/HPI - General Chief Complaint: Headache Time Seen by Provider: 05/30/17 21:42 Historian: Patient - History of Present Illness Narrative History of Present Illness (Text): 05/30/17 21:45 Falguni Breen is a 26 year old female, whose past medical history includes vertigo, migraines, hypothyroidism, asthma, and hypertension, who presents to the Emergency Department for intermittent headaches for the past five days. Patient denies having fever, chills, weakness, focal deficits, chest pain, palpitations, abdominal pain, nausea, vomiting, diarrhea, urinary symptoms , or any other complaints. Time/Duration: < week Symptom Onset: Gradual Symptom Course: Unchanged, Intermittent Activities at Onset: Light Context: Home Past Medical History - Provider Review Nursing Documentation Reviewed: Yes - Past History Past History: Non-Contributing - Infectious Disease Hx of Infectious Diseases: None - Tetanus Immunization Tetanus Immunization: Unknown - Cardiac Hx Cardiac Disorders: Yes Hx Hypertension: Yes (Pre eclampsia) - Pulmonary Hx Respiratory Disorders: Yes Hx Asthma: Yes - Neurological Hx Migraine: Yes - HEENT Hx HEENT Disorder: No - Renal Hx Renal Disorder: No - Endocrine/Metabolic Hx Hyperthyroidism: Yes - Hematological/Oncological Hx Blood Disorders: No - Integumentary Hx Dermatological Disorder: No - Musculoskeletal/Rheumatological Hx Musculoskeletal Disorders: No - Gastrointestinal Hx Gastrointestinal Disorders: No - Genitourinary/Gynecological Hx Genitourinary Disorders: No - Psychiatric Hx Psychophysiologic Disorder: No Hx Anxiety: No Hx Bipolar Disorder: No Hx Depression: No Hx Post Traumatic Stress Disorder: No Hx Schizophrenia: No Hx Substance Use: No - Past Surgical History Past Surgical History: No Previous - Surgical History Hx Cholecystectomy: Yes Hx Orthopedic Surgery: Yes (L ELBOW 12 yrs old) - Anesthesia Hx Anesthesia: Yes Hx Anesthesia Reactions: No Hx Malignant Hyperthermia: No - Suicidal Assessment Feels Threatened In Home Enviroment: No Family/Social History - Physician Review Nursing Documentation Reviewed: Yes Family/Social History: Unknown Family HX Smoking Status: Never Smoked Hx Alcohol Use: No Hx Substance Use: No Hx Substance Use Treatment: No Allergies/Home Meds Allergies/Adverse Reactions: Allergies acetaminophen [From Percocet] Allergy (Verified 11/24/16 14:54) ANAPHYLAXIS Iodinated Contrast- Oral and IV Dye [Iodinated Contrast Media - IV Dye] Allergy (Verified 11/24/16 14:54) RASH oxycodone HCl [From Percocet] Allergy (Verified 11/24/16 14:54) ANAPHYLAXIS Review of Systems - Physician Review All systems were reviewed & negative as marked: Yes - Review of Systems Constitutional: Normal. absent: Fevers Eyes: Normal. absent: Vision Changes, Photophobia ENT: Normal Respiratory: Normal. absent: SOB, Cough, Sputum, Wheezing Cardiovascular: Normal. absent: Chest Pain, Palpitations Gastrointestinal: Normal. absent: Abdominal Pain, Diarrhea, Nausea, Vomiting Skin: Normal Neurological: Headache. absent: Dizziness, Focal Weakness Endocrine: Normal Psychiatric: Normal Physical Exam Vital Signs Reviewed: Yes Vital Signs Temp Pulse Resp BP Pulse Ox 05/30/17 21:21 98.2 F 58 L 18 118/80 99 Temperature: Afebrile Blood Pressure: Normal Pulse: Regular Respiratory Rate: Normal Appearance: Positive for: Well-Appearing, Non-Toxic, Comfortable Pain Distress: None Mental Status: Positive for: Alert and Oriented X 3 - Systems Exam Head: Present: Atraumatic, Normocephalic Pupils: Present: PERRL Extroacular Muscles: Present: EOMI Conjunctiva: Present: Normal Ears: Present: Normal, NORMAL TM, Normal Canal. No: Erythema, TM Bulging, Fluid , TM Perf Mouth: Present: Moist Mucous Membranes Pharnyx: Present: Normal. No: ERYTHEMA, EXUDATE, TONSILS ENLARGED, Peritonsilar Swelling, Uvular Deviation, Muffled/Hoarse Voice, Strider, Soft Palate/Uvular Edema Neck: Present: Normal Range of Motion. No: Meningeal Signs, MIDLINE TENDERNESS , Paraspinal Tenderness Respiratory/Chest: Present: Clear to Auscultation, Good Air Exchange. No: Respiratory Distress, Accessory Muscle Use Cardiovascular: Present: Regular Rate and Rhythm, Normal S1, S2. No: Murmurs Abdomen: Present: Normal Bowel Sounds. No: Tenderness, Distention, Peritoneal Signs Back: Present: Normal Inspection Upper Extremity: Present: Normal Inspection. No: Cyanosis, Edema Lower Extremity: Present: Normal Inspection. No: Edema Neurological: Present: GCS=15, CN II-XII Intact, Speech Normal Skin: Present: Warm, Dry, Normal Color. No: Rashes Psychiatric: Present: Alert, Oriented x 3, Normal Insight, Normal Concentration Medical Decision Making ED Course and Treatment: 05/30/17 21:45 Impression: Patient is a 26 year old female presents to the Emergency department for headache. Differential Diagnosis included but are not limited to: headache Plan: -- CT of head w/o contrast -- Motrin -- Reassess and disposition Prior Visits: Notes and results from previous visits were reviewed. On 11/24/16, patient was seen at the Emergency department for headache, shortness of breath and left side facial numbness. Patient was admitted to the hospital for further evaluation. Progress Notes: Reviewed CT head, shows: Brain: No intracranial hemorrhage. No mass. No definite edema. Ventricles: No hydrocephalus. Bones/joints: No acute fracture. Soft tissues: Unremarkable. Sinuses: No acute sinusitis. Mastoid air cells: No mastoid effusion. Orbits: Unremarkable as visualized. IMPRESSION: 1. No acute intracranial abnormality 05/30/17 22:40 On reevaluation the patient feels better and is in no acute distress. I have discussed the results and plan with the patient, who expresses understanding. Patient given the opportunity to ask question, all questions were answered and there is agreement with the plan to discharge the patient home. Patient is stable for discharge. Patient was instructed to follow up with physician/clinic in 1-2 days or return if symptoms persist/worsen or new concerning symptoms arise. - RAD Interpretation Radiology Orders: 05/30/17 21:48 HEAD W/O CONTRAST [CT] Stat [employer] Specialist: Radiologist - Medication Orders Current Medication Orders: Discontinued Medications Ibuprofen (Motrin Tab) 600 mg PO STAT STA Stop: 05/30/17 22:44 - Scribe Statement The provider has reviewed the documentation as recorded by the Scribe Waylon Ledesma, training under Trupti Bowen All medical record entries made were at my direction and personally dictated by me. I have reviewed the chart and agree that the record accurately reflects my personal performance of the history, physical exam, medical decision making, and the department course for this patient. I have also personally directed, reviewed, and agree with the discharge instructions and disposition. Disposition/Present on Arrival - Present on Arrival Any Indicators Present on Arrival: No History of DVT/PE: No History of Uncontrolled Diabetes: No Urinary Catheter: No History of Decub. Ulcer: No History Surgical Site Infection Following: None - Disposition Have Diagnosis and Disposition been Completed?: Yes Diagnosis: Headache Disposition: HOME/ ROUTINE Disposition Time: 22:40 Patient Plan: Discharge Patient Problems: Current Active Problems Problem Status Onset Headache Acute Condition: GOOD Discharge Instructions (ExitCare): Tension Headache (ED) Additional Instructions: Take meds as prescribed/follow up with your doctor this week Prescriptions: Naproxen [Naprosyn] 500 mg PO BID PRN #12 tab PRN Reason: Headache Referrals: Aris Mclean MD [Primary Care Provider] - Follow up with primary Forms: [employer] ([place])
--- NOTE | 2017-05-30 22:34 | CT ---
EXAM: CT Head Without Intravenous Contrast CLINICAL HISTORY: 26 years old, female; Pain; Headache TECHNIQUE: Axial computed tomography images of the head/brain without intravenous contrast. All CT scans at this facility use one or more dose reduction techniques, viz.: automated exposure control; ma/kV adjustment per patient size (including targeted exams where dose is matched to indication; i.e. head); or iterative reconstruction technique. COMPARISON: CT - HEAD W/O CONTRAST 2016-11-24 16:31 FINDINGS: Brain: No intracranial hemorrhage. No mass. No definite edema. Ventricles: No hydrocephalus. Bones/joints: No acute fracture. Soft tissues: Unremarkable. Sinuses: No acute sinusitis. Mastoid air cells: No mastoid effusion. Orbits: Unremarkable as visualized. IMPRESSION: 1. No acute intracranial abnormality.
[2017-05-30 23:04] VITALS: BP 121/79; PULSE 78; O2SAT 100
== END 2017-05-30 23:34 | disposition home or self-care (01) ==
LOC: ED 20:54
DX: R51 Headache (principal); I10 Essential (primary) hypertension

== ENCOUNTER 2017-11-12 18:32 | Emergency (ER) | payer SELFPAY ==
[2017-11-12 18:32] VITALS: BMI 31.8
[2017-11-12 18:42] VITALS: RESP 18
[2017-11-12 19:47] LABS: ALB/GLOB RATIO 1.1 (1.1-1.8); ALT/SGPT 25 U/L (7-56); AST/SGOT 20 U/L (14-36); BLOOD UREA NITROGEN 13 mg/dL (7-21); CALCIUM 9.4 mg/dL (8.4-10.5); GFR AFRICAN-AMERICAN > 60; GFR NON-AFRICAN AMERICAN > 60; LIPASE 79 U/L (23-300)
[2017-11-12 19:49] LABS: BASO # 0.01 K/mm3 (0.0-2.0); BASO % 0.1 % (0.0-3.0); EOS # 0.2 (0.0-0.7); EOS % 1.3 % (1.5-5.0); GRAN # 6.34 (1.4-6.5); GRAN % 53.8 % (50.0-68.0); HEMOGLOBIN 13.7 g/dL (12.0-16.0); LYMPH # 4.6 (1.2-3.4); LYMPH % 39.2 % (22.0-35.0); MEAN CELL VOLUME 93.4 fl (80.0-105.0); MEAN CORPUSCULAR HEMOGLOBIN 31.3 pg (25.0-35.0); MEAN CORPUSCULAR HGB CONC 33.5 g/dl (31.0-37.0); MEAN PLATELET VOLUME 10.6 fl (7.0-11.0); MONO # 0.7 (0.1-0.6); MONO % 5.6 % (1.0-6.0); RBC 4.38 10^6/uL (3.5-6.1); RED CELL DISTRIBUTION WIDTH 12.6 % (11.5-14.5); WHITE BLOOD COUNT 11.8 10^3/ul (4.5-11.0)
--- NOTE | 2017-11-12 20:07 | ED PDOC ---
Arrival/HPI - General Chief Complaint: Back Pain Time Seen by Provider: 11/12/17 19:08 Historian: Patient - History of Present Illness Narrative History of Present Illness (Text): 11/12/17 20:06 A 26 year old female, whose past medical history includes migraines, hypothyroidism, vertigo, asthma and hypertension, presents to the emergency department complaining of right flank pain and RLQ abdominal pain that developed 9 days ago. Patient denies any fever, chills, headache, dizziness, shortness of breath or any other complaints at this time. Time/Duration: > week Symptom Onset: Sudden Symptom Course: Unchanged Activities at Onset: Rest Context: Home Past Medical History - Provider Review Nursing Documentation Reviewed: Yes - Past History Past History: Non-Contributing - Infectious Disease Hx of Infectious Diseases: None - Tetanus Immunization Tetanus Immunization: Unknown - Cardiac Hx Cardiac Disorders: Yes Hx Hypertension: Yes (Pre eclampsia) - Pulmonary Hx Respiratory Disorders: Yes Hx Asthma: Yes - Neurological Hx Migraine: Yes - HEENT Hx HEENT Disorder: No - Renal Hx Renal Disorder: No - Endocrine/Metabolic Hx Hyperthyroidism: Yes - Hematological/Oncological Hx Blood Disorders: No - Integumentary Hx Dermatological Disorder: No - Musculoskeletal/Rheumatological Hx Musculoskeletal Disorders: No - Gastrointestinal Hx Gastrointestinal Disorders: No - Genitourinary/Gynecological Hx Genitourinary Disorders: No - Psychiatric Hx Psychophysiologic Disorder: No Hx Anxiety: No Hx Bipolar Disorder: No Hx Depression: No Hx Post Traumatic Stress Disorder: No Hx Schizophrenia: No Hx Substance Use: No - Past Surgical History Past Surgical History: No Previous - Surgical History Hx Cholecystectomy: Yes Hx Orthopedic Surgery: Yes (L ELBOW 12 yrs old) - Anesthesia Hx Anesthesia: Yes Hx Anesthesia Reactions: No Hx Malignant Hyperthermia: No - Suicidal Assessment Feels Threatened In Home Enviroment: No Family/Social History - Physician Review Nursing Documentation Reviewed: Yes Family/Social History: No Known Family HX Smoking Status: Never Smoked Hx Alcohol Use: No Hx Substance Use: No Hx Substance Use Treatment: No Allergies/Home Meds Allergies/Adverse Reactions: Allergies acetaminophen [From Percocet] Allergy (Verified 11/24/16 14:54) ANAPHYLAXIS Iodinated Contrast- Oral and IV Dye [Iodinated Contrast Media - IV Dye] Allergy (Verified 11/24/16 14:54) RASH oxycodone HCl [From Percocet] Allergy (Verified 11/24/16 14:54) ANAPHYLAXIS Home Medications: Home Meds Medication Instructions Recorded Confirmed No Known Home Med 11/12/17 11/12/17 Review of Systems - Physician Review All systems were reviewed & negative as marked: Yes - Review of Systems Constitutional: absent: Fevers, Other (chills) Respiratory: absent: SOB Gastrointestinal: Abdominal Pain (RLQ) Musculoskeletal: Other (right flank pain) Neurological: absent: Headache, Dizziness Physical Exam Vital Signs Reviewed: Yes Vital Signs Temp Pulse Resp BP Pulse Ox 11/13/17 02:15 98.0 F 82 18 97/63 L 100 11/12/17 23:42 98.2 F 82 18 97/63 L 100 11/12/17 21:13 98.2 F 78 18 101/49 L 98 11/12/17 18:40 98.5 F 83 18 100/68 99 Temperature: Afebrile Blood Pressure: Normal Pulse: Regular Respiratory Rate: Normal Appearance: Positive for: Well-Appearing, Non-Toxic, Comfortable Pain Distress: None Mental Status: Positive for: Alert and Oriented X 3 - Systems Exam Head: Present: Atraumatic, Normocephalic Pupils: Present: PERRL Extroacular Muscles: Present: EOMI Conjunctiva: Present: Normal Mouth: Present: Moist Mucous Membranes Neck: Present: Normal Range of Motion Respiratory/Chest: Present: Clear to Auscultation, Good Air Exchange. No: Respiratory Distress, Accessory Muscle Use Cardiovascular: Present: Regular Rate and Rhythm, Normal S1, S2. No: Murmurs Abdomen: Present: Tenderness (RLQ). No: Distention, Peritoneal Signs Back: Present: Normal Inspection Upper Extremity: Present: Normal Inspection. No: Cyanosis, Edema Lower Extremity: Present: Normal Inspection. No: Edema Neurological: Present: GCS=15, CN II-XII Intact, Speech Normal Skin: Present: Warm, Dry, Normal Color. No: Rashes Psychiatric: Present: Alert, Oriented x 3, Normal Insight, Normal Concentration Medical Decision Making ED Course and Treatment: 11/12/17 20:04 Impression: A 26 year old female with right flank pain and RLQ abdominal pain. Plan: -- US transvaginal -- labs -- Toradol -- Reassess and disposition Prior Visits: Notes and results from previous visits were reviewed. Patient was last seen in the emergency department on 05/30/17 for evaluation of headache. Progress Notes: US Pelvis Complete, Transabdominal US Pelvis, Transvaginal FINDINGS: Uterus/cervix: Uterus measures 8.0 x 5.1 x 5.1 cm in size. No myometrial mass. Endometrium: 0.7 cm in thickness. IUD in place. Right ovary: 4.6 x 4.8 x 4.4 cm in size. 3.8 x 4.0 x 4.2 cm anechoic lesion. Normal flow. Left ovary: 1.9 x 2.6 x 1.7 cm in size. No mass. Normal flow. Free fluid: No significant free fluid. Bladder: Unremarkable as visualized. IMPRESSION: 1. RIGHT ovarian cyst. 2. Incidental/non-acute findings are described above. Dictated and Authenticated by: Michele Burris MD 11/12/2017 8:58 PM Eastern Time ([place] & [place]) 11/12/17 23:23 CT Abdomen and Pelvis shows: Limitations: Lack of intravenous contrast. Lung bases: No acute findings. ABDOMEN: Liver: Unremarkable. Gallbladder and bile ducts: Cholecystectomy. No significant ductal dilation. Pancreas: Unremarkable. No ductal dilation. Spleen: No splenomegaly. Adrenals: No mass. Kidneys and ureters: Mild scarring upper pole left kidney. No renal calculi. No hydronephrosis. Stomach and bowel: No definite mural thickening. No obstruction. PELVIS: Appendix: Normal caliber. No inflammation. Bladder: Unremarkable. No stones. Reproductive: IUD. 4.3 x 3.6 x 4.4 cm hypodense lesion within RIGHT ovary. ABDOMEN and PELVIS: Intraperitoneal space: No significant fluid collection. No free air. Bones/joints: Marked angulation of coccyx, chronic. No acute fracture. Soft tissues: Tiny umbilical hernia containing fat. Vasculature: Unremarkable. No aneurysm. Lymph nodes: No pathologically enlarged lymph nodes. IMPRESSION: 1. RIGHT ovarian cyst. See ultrasound report. 2. Incidental/non-acute findings are described above. On re-evaluation, patient feels better and is in no acute distress. I have discussed the results and plan with the patient, who expresses understanding. Patient in agreement with plan to be discharged home. Patient is stable for discharge. Patient was instructed to follow up with physician or return if symptoms worsen or new concerning symptoms arise. - Lab Interpretations Lab Results: 11/12/17 19:33 11/12/17 19:33 Lab Results 11/12/17 19:33: Sodium 142, Potassium 3.9, Chloride 102, Carbon Dioxide 28, Anion Gap 16, BUN 13, Creatinine 0.6 L, Est GFR ( Amer) > 60, Est GFR ( Non-Af Amer) > 60, Random Glucose 99, Calcium 9.4, Magnesium 1.6 L, Total Bilirubin 0.2, AST 20, ALT 25, Alkaline Phosphatase 103, Total Protein 7.7, Albumin 4.0, Globulin 3.7, Albumin/Globulin Ratio 1.1, Lipase 79 11/12/17 19:33: WBC 11.8 H D, RBC 4.38, Hgb 13.7, Hct 40.9, MCV 93.4, MCH 31.3, MCHC 33.5, RDW 12.6, Plt Count 228, MPV 10.6, Gran % 53.8, Lymph % (Auto) 39.2 H , Hardin % (Auto) 5.6, Eos % (Auto) 1.3 L, Baso % (Auto) 0.1, Gran # 6.34, Lymph # (Auto) 4.6 H, Hardin # (Auto) 0.7 H, Eos # (Auto) 0.2, Baso # (Auto) 0.01 I have reviewed the lab results: Yes - RAD Interpretation Radiology Orders: 11/12/17 19:21 TRANSVAGINAL [US] Stat 11/12/17 21:27 ABD & PELVIS W/O PO OR IV CONT [CT] Stat - Medication Orders Current Medication Orders: Discontinued Medications Ketorolac Tromethamine (Toradol) 15 mg IVP ONCE ONE Stop: 11/12/17 19:31 - Scribe Statement The provider has reviewed the documentation as recorded by the India Lan Provider Scribe Attestation: All medical record entries made by the Scribashwin were at my direction and personally dictated by me. I have reviewed the chart and agree that the record accurately reflects my personal performance of the history, physical exam, medical decision making, and the department course for this patient. I have also personally directed, reviewed, and agree with the discharge instructions and disposition. Disposition/Present on Arrival - Present on Arrival Any Indicators Present on Arrival: No History of DVT/PE: No History of Uncontrolled Diabetes: No Urinary Catheter: No History of Decub. Ulcer: No History Surgical Site Infection Following: None - Disposition Have Diagnosis and Disposition been Completed?: Yes Diagnosis: Ovarian cyst Disposition: HOME/ ROUTINE Disposition Time: 23:23 Condition: GOOD Discharge Instructions (ExitCare): Ovarian Cysts Additional Instructions: advil as needed for pain Referrals: [facility] Roberth Recarmen, [Non-Staff] - Follow up with primary Forms: [employer] (Singaporean)
--- NOTE | 2017-11-12 21:00 | US ---
EXAM: US Pelvis Complete, Transabdominal US Pelvis, Transvaginal CLINICAL HISTORY: 26 years old, female; Pain; Pelvic pain; Additional info: Rlq pain TECHNIQUE: Real-time transabdominal and transvaginal pelvic ultrasound (complete) with image documentation. Transvaginal imaging was used for better evaluation of the endometrium and adnexa. COMPARISON: No relevant prior studies available. FINDINGS: Uterus/cervix: Uterus measures 8.0 x 5.1 x 5.1 cm in size. No myometrial mass. Endometrium: 0.7 cm in thickness. IUD in place. Right ovary: 4.6 x 4.8 x 4.4 cm in size. 3.8 x 4.0 x 4.2 cm anechoic lesion. Normal flow. Left ovary: 1.9 x 2.6 x 1.7 cm in size. No mass. Normal flow. Free fluid: No significant free fluid. Bladder: Unremarkable as visualized. IMPRESSION: 1. RIGHT ovarian cyst. 2. Incidental/non-acute findings are described above.
--- NOTE | 2017-11-12 23:11 | CT ---
EXAM: CT Abdomen and Pelvis Without Intravenous Contrast CLINICAL HISTORY: 26 years old, female; Pain and condition or disease; Other: Cysts; Abdominal pain; Localized; Right lower quadrant (rlq); Additional info: Rlq pain TECHNIQUE: Axial computed tomography images of the abdomen and pelvis without intravenous contrast. All CT scans at this facility use one or more dose reduction techniques, viz.: automated exposure control; ma/kV adjustment per patient size (including targeted exams where dose is matched to indication; i.e. head); or iterative reconstruction technique. Coronal and sagittal reformatted images were created and reviewed. COMPARISON: CT - ABD PELVIS W/O PO OR IV CONT 2016-01-18 20:14 FINDINGS: Limitations: Lack of intravenous contrast. Lung bases: No acute findings. ABDOMEN: Liver: Unremarkable. Gallbladder and bile ducts: Cholecystectomy. No significant ductal dilation. Pancreas: Unremarkable. No ductal dilation. Spleen: No splenomegaly. Adrenals: No mass. Kidneys and ureters: Mild scarring upper pole left kidney. No renal calculi. No hydronephrosis. Stomach and bowel: No definite mural thickening. No obstruction. PELVIS: Appendix: Normal caliber. No inflammation. Bladder: Unremarkable. No stones. Reproductive: IUD. 4.3 x 3.6 x 4.4 cm hypodense lesion within RIGHT ovary. ABDOMEN and PELVIS: Intraperitoneal space: No significant fluid collection. No free air. Bones/joints: Marked angulation of coccyx, chronic. No acute fracture. Soft tissues: Tiny umbilical hernia containing fat. Vasculature: Unremarkable. No aneurysm. Lymph nodes: No pathologically enlarged lymph nodes. IMPRESSION: 1. RIGHT ovarian cyst. See ultrasound report. 2. Incidental/non-acute findings are described above.
[2017-11-12 23:44] VITALS: BP 97/63; PULSE 82; O2SAT 100
[2017-11-13 02:16] VITALS: TEMP 98
[2017-11-13] MEDS ORDERED: Bacitracin 500 Units/gm Oint Foilpak UD ONE (04:12)
== END 2017-11-12 23:45 | disposition home or self-care (01) ==
LOC: ED 18:32
DX: N83.201 Unspecified ovarian cyst, right side (principal); I10 Essential (primary) hypertension; Z90.49 Acquired absence of other specified parts of digestive tract

== ENCOUNTER 2018-09-02 18:51 | Emergency (ER) | payer OTHER ==
[2018-09-02 18:54] VITALS: BMI 34.7
[2018-09-02 19:15] VITALS: RESP 18
--- NOTE | 2018-09-02 19:40 | ED PDOC ---
Arrival/HPI - General Chief Complaint: Chest Pain Historian: Patient - History of Present Illness Narrative History of Present Illness (Text): 09/02/18 19:35 27 year old female with past medical history of vertigo, migraines, hypothyroidism, asthma, and hypertension, presents to the ED for evaluation of palpitations since 1 hour prior to arrival. Patient states symptoms initially started as chest pain at 2 pm which spontaneously resolved with time. As per patient, symptoms returned prior to arrival associated with palpitations and dizziness, prompting her to present to the ED for evaluation. Patient informs starting Z-dylon today for ear infection and believes symptoms may have been a side effect from that. Patient additionally reports taking phentermine for past month for weight loss. Patient denies any other associated somatic complaints. Patient denies any fevers, chills, headache, shortness of breath, dyspnea on exertion, cough, abdominal pain, nausea, vomiting, diarrhea, back pain, neck pain, or any other complaints. Time/Duration: Prior to Arrival Symptom Onset: Gradual Symptom Course: Unchanged Activities at Onset: Light Context: Home Past Medical History - Provider Review Nursing Documentation Reviewed: Yes - Past History Past History: Non-Contributing - Infectious Disease Hx of Infectious Diseases: None - Tetanus Immunization Tetanus Immunization: Unknown - Cardiac Hx Cardiac Disorders: Yes Hx Hypertension: Yes (Pre eclampsia) - Pulmonary Hx Respiratory Disorders: Yes Hx Asthma: Yes - Neurological Hx Migraine: Yes - HEENT Hx HEENT Disorder: No - Renal Hx Renal Disorder: No - Endocrine/Metabolic Hx Hyperthyroidism: Yes - Hematological/Oncological Hx Blood Disorders: No - Integumentary Hx Dermatological Disorder: No - Musculoskeletal/Rheumatological Hx Musculoskeletal Disorders: No - Gastrointestinal Hx Gastrointestinal Disorders: No - Genitourinary/Gynecological Hx Genitourinary Disorders: No - Psychiatric Hx Psychophysiologic Disorder: No Hx Anxiety: No Hx Bipolar Disorder: No Hx Depression: No Hx Post Traumatic Stress Disorder: No Hx Schizophrenia: No Hx Substance Use: No - Past Surgical History Past Surgical History: No Previous - Surgical History Hx Cholecystectomy: Yes Hx Orthopedic Surgery: Yes (L ELBOW 12 yrs old) - Anesthesia Hx Anesthesia: Yes Hx Anesthesia Reactions: No Hx Malignant Hyperthermia: No - Suicidal Assessment Feels Threatened In Home Enviroment: No Family/Social History - Physician Review Nursing Documentation Reviewed: Yes Family/Social History: Unknown Family HX Smoking Status: Never Smoked Hx Alcohol Use: No Hx Substance Use: No Hx Substance Use Treatment: No Allergies/Home Meds Allergies/Adverse Reactions: Allergies acetaminophen [From Percocet] Allergy (Verified 09/02/18 19:01) ANAPHYLAXIS Iodinated Contrast- Oral and IV Dye [Iodinated Contrast Media - IV Dye] Allergy (Verified 09/02/18 19:01) RASH oxycodone HCl [From Percocet] Allergy (Verified 09/02/18 19:01) ANAPHYLAXIS Home Medications: Home Meds Medication Instructions Recorded Confirmed No Known Home Med 11/12/17 09/02/18 Review of Systems - Physician Review All systems were reviewed & negative as marked: Yes - Review of Systems Constitutional: absent: Fevers Respiratory: absent: SOB, Cough Cardiovascular: Chest Pain, Palpitations Gastrointestinal: absent: Abdominal Pain, Diarrhea, Nausea, Vomiting Genitourinary Female: absent: Dysuria, Urine Output Changes Musculoskeletal: absent: Back Pain, Neck Pain Skin: absent: Rash Neurological: absent: Headache, Dizziness Psychiatric: absent: Anxiety Physical Exam Vital Signs Reviewed: Yes Vital Signs Pulse Resp BP Pulse Ox 09/02/18 18:59 111 H 18 109/72 96 Temperature: Afebrile Blood Pressure: Normal Pulse: Tachycardic Respiratory Rate: Normal Appearance: Positive for: Well-Appearing, Non-Toxic, Comfortable Pain Distress: None Mental Status: Positive for: Alert and Oriented X 3 - Systems Exam Head: Present: Atraumatic, Normocephalic Pupils: Present: PERRL Extroacular Muscles: Present: EOMI Conjunctiva: Present: Normal Mouth: Present: Moist Mucous Membranes Neck: Present: Normal Range of Motion Respiratory/Chest: Present: Clear to Auscultation, Good Air Exchange. No: Respiratory Distress, Accessory Muscle Use Cardiovascular: Present: Regular Rate and Rhythm, Normal S1, S2. No: Murmurs Abdomen: No: Tenderness, Distention, Peritoneal Signs Back: Present: Normal Inspection Upper Extremity: Present: Normal Inspection. No: Cyanosis, Edema Lower Extremity: Present: Normal Inspection. No: Edema Neurological: Present: GCS=15, Speech Normal Skin: Present: Warm, Dry, Normal Color. No: Rashes Psychiatric: Present: Alert, Oriented x 3, Normal Insight, Normal Concentration Medical Decision Making ED Course and Treatment: 09/02/18 19:41 Impression: 27 year old female presents to the ED for evaluation of chest pain and palpitations. Differential Diagnosis included but are not limited to: --Medication side effect --Allergic reaction --PE Plan: -- Labs --IVF --Duonebs -- CXR -- EKG -- Urinalysis -- Reassess and disposition Prior Visits: Notes and results from previous visits were reviewed. Progress Notes: 09/02/18 19:52 Investigation of drug phentermine reveals common side effects of irregular heart beats, possible valvular abnormalities and possible pulmonary hypertension and cardiomyopathy with termite control technician use. Patient updated on information and advised to visit her weight loss specialist to reconsider using drug as an appetite suppresant. She demonstrates understanding. 09/02/18 21:[address] Rodriguez who will resume the patient's care. - EKG Interpretation EKG Interpretation (Text): 09/02/18 19:06 EKG reviewed, shows Sinus Tachycardia at 107 bpm, PACs seen diffusely, No ST elevations. Interpreted by ED Physician: Yes Type: 12 lead EKG - Scribe Statement The provider has reviewed the documentation as recorded by the Scribe Waylon Ledesma. All medical record entries made by the Scribe were at my direction and personally dictated by me. I have reviewed the chart and agree that the record accurately reflects my personal performance of the history, physical exam, medical decision making, and the department course for this patient. I have also personally directed, reviewed, and agree with the discharge instructions and disposition. Disposition/Present on Arrival - Present on Arrival History of DVT/PE: No History of Uncontrolled Diabetes: No Urinary Catheter: No History of Decub. Ulcer: No History Surgical Site Infection Following: None - Disposition Forms: [employer] (Turkish)
[2018-09-02] MEDS ORDERED: Albuterol-Ipratrop 3 mg / 0.5 (3 ml) UD IH STA (19:52)
[2018-09-02] MEDS: Sodium Chloride 0.9% 1,000 ML IV STA ×2 (20:32→20:34)
[2018-09-02 20:54] LABS: BASO # 0.01 K/mm3 (0.0-2.0); BASO % 0.1 % (0.0-3.0); EOS # 0.1 (0.0-0.7); EOS % 1.5 % (1.5-5.0); HEMOGLOBIN 14.4 g/dL (12.0-16.0); LYMPH # 2.2 (1.2-3.4); LYMPH % 29.1 % (22.0-35.0); MEAN CELL VOLUME 94.2 fl (80.0-105.0); MEAN CORPUSCULAR HEMOGLOBIN 31.1 pg (25.0-35.0); MONO # 0.6 (0.1-0.6); MONO % 8.4 % (1.0-6.0); RBC 4.63 10^6/uL (3.5-6.1); RED CELL DISTRIBUTION WIDTH 12.6 % (11.5-14.5); WHITE BLOOD COUNT 7.4 10^3/uL (4.5-11.0)
[2018-09-02 20:58] LABS: ALBUMIN 4.5 g/dL (3.0-4.8); ALT/SGPT 45 U/L (7-56); AST/SGOT 44 U/L (14-36); BLOOD UREA NITROGEN 9 mg/dL (7-21); CALCIUM 9.4 mg/dL (8.4-10.5); GFR NON-AFRICAN AMERICAN > 60
[2018-09-02 21:09] LABS: B-TYPE NATRIURETIC PEPTIDE 19.4 pg/mL (0-450); TROPONIN I < 0.01 ng/mL
[2018-09-02] MEDS ORDERED: Potassium Chloride 20 mEq ER Tab PO STA (21:26)
--- NOTE | 2018-09-02 21:26 | ED PDOC ---
Physical Exam Vital Signs Pulse Resp BP Pulse Ox 09/02/18 18:59 111 H 18 109/72 96 Medical Decision Making ED Course and Treatment: 09/02/18 21:00 Case endorsed to me by Dr. Duran, pending labs, reevaluation, and disposition. 09/02/18 22:16 On re-evaluation, patient feels better and is in no acute distress. I have discussed the results and plan with the patient, who expresses understanding. Patient in agreement with plan to be discharged home. Patient is stable for disc harge. Patient was instructed to follow up with physician or return if symptoms worsen or new concerning symptoms arise. - Lab Interpretations Lab Results: Troponin I < 0.01 ng/mL 09/02/18 20:15 NT-Pro-B Natriuret Pep 19.4 pg/mL (0-450) 09/02/18 20:15 Total Bilirubin 0.2 mg/dL (0.2-1.3) 09/02/18 20:15 AST 44 U/L (14-36) H D 09/02/18 20:15 ALT 45 U/L (7-56) 09/02/18 20:15 Alkaline Phosphatase 91 U/L (38-126) 09/02/18 20:15 Total Protein 8.7 g/dL (5.8-8.3) H 09/02/18 20:15 Albumin 4.5 g/dL (3.0-4.8) 09/02/18 20:15 Globulin 4.3 gm/dL 09/02/18 20:15 Albumin/Globulin Ratio 1.0 (1.1-1.8) L 09/02/18 20:15 - RAD Interpretation Radiology Orders: 09/02/18 19:41 CHEST PORTABLE [RAD] Stat - Medication Orders Current Medication Orders: Discontinued Medications Sodium Chloride (Sodium Chloride 0.9%) 1,000 mls @ 999 mls/hr IV .Q1H1M STA Stop: 09/02/18 20:51 Last Admin: 09/02/18 20:34 Dose: 999 mls/hr eMAR Start Stop Document 09/02/18 20:34 RD (Rec: 09/02/18 20:34 RD [id number]) Intravenous Solution Start Date 09/02/18 Start Time 20:34 End Date 09/02/18 End time 21:34 Total Infusion Time 60 Disposition/Present on Arrival - Present on Arrival Any Indicators Present on Arrival: No History of DVT/PE: No History of Uncontrolled Diabetes: No Urinary Catheter: No History of Decub. Ulcer: No History Surgical Site Infection Following: None - Disposition Have Diagnosis and Disposition been Completed?: Yes Diagnosis: Palpitations, Adverse drug effect Disposition: HOME/ ROUTINE Disposition Time: 22:16 Condition: GOOD Discharge Instructions (ExitCare): Palpitations, Adverse Drug Reactions, Adult (DC) Additional Instructions: stop z pack and phentamine Prescriptions: Amoxicillin 875 mg PO BID #20 tab Forms: [facility] (Vietnamese)
[2018-09-02 21:53] VITALS: PULSE 86; O2SAT 100
[2018-09-02 21:59] VITALS: BP 104/55
--- NOTE | 2018-09-03 09:08 | RAD ---
Date of service: 09/02/2018 HISTORY: palpitations COMPARISON: 11/24/2016 FINDINGS: LUNGS: No active pulmonary disease. PLEURA: No significant pleural effusion identified, no pneumothorax apparent. CARDIOVASCULAR: No aortic atherosclerotic calcification present. Normal cardiac size. No pulmonary vascular congestion. OSSEOUS STRUCTURES: No significant abnormalities. VISUALIZED UPPER ABDOMEN: Normal. OTHER FINDINGS: None. IMPRESSION: No active disease.
--- NOTE | 2018-09-03 13:20 | CARD ---
APPROVED REPORT Date of service: 09/02/2018 EKG Measurement Heart [id number] <Conclusion> Sinus tachycardia. PVCs. Possible Left atrial enlargement Borderline ECG
== END 2018-09-02 22:25 | disposition home or self-care (01) ==
LOC: ED 18:51
DX: R00.2 Palpitations (principal); T36.3X5A Adverse effect of macrolides, initial encounter; I10 Essential (primary) hypertension
CPT/HCPCS: 71045; 80053; 81025; 83880; 84484; 85025; 93005; 96360; 99284; J7030